=== PATIENT | male | born 1945 | race Caucasian/White ===

== ENCOUNTER 2022-05-13 16:24 | Inpatient (IN) ==
[2022-05-13] MEDS ORDERED: IOPAMIDOL 100 ML BOTTLE IV ONE (16:25)
[2022-05-13 19:19] LABS: POC Calcium, Ionized 1.04 (1.16-1.32); POC Creatinine 1.3 (0.6-1.2); POC Potassium 3.6 (3.3-5.1)
[2022-05-13] MEDS ORDERED: morphine 2 MG/ML VIAL IV ONE ×2 (19:30→21:14)
--- NOTE | 2022-05-13 19:41 | Emergency Department Note ---
Abdominal Pain HPI General Chief Complaint: Abdominal Pain Stated Complaint: gall bladder issues Time Seen by Provider: 05/13/22 16:47 Source: patient Mode of arrival: ambulatory Limitations: no limitations History of Present Illness HPI Narrative: Narrative: Patient presents ED with complaints of worsening abdominal pain x1 week. He reports that the pain is in the right upper quadrant and rates it 7/10. He sta mary he went to his PCPs office the other day and they set him up for an outpatient right upper quadrant ultrasound which revealed gallstones. Patient states that he went over to follow-up with Dr. Eduardo, general surgery, and was advised to come here to the ED for full work-up for possible surgery. Patient reports associated nausea, 2 bouts of diarrhea today and decreased appetite. He is not anything all day. He denies fever, chills, hematemesis, melena, medic easier abdominal trauma, cardiac chest pain, heart palpitation, shortness of breath. Patient denies any other alleviating or aggravating factors. Related Data Home Medications Medication Instructions Recorded Confirmed aspirin 81 mg tablet,delayed 81 mg PO QDAY 05/12/22 05/13/22 release Previous Rx's Medication Instructions Recorded Auto PAP #1 ea 10/01/19 nitroglycerin 0.4 mg sublingual 0.4 mg sublingual Q5-15MIN PRN 10/23/20 tablet chest pain #7 tabs sildenafil 100 mg tablet 100 mg PO QDAY PRN sexual activity 10/30/20 #10 tabs colchicine 0.6 mg tablet 0.6 mg PO QDAY #7 tabs 04/17/21 allopurinol 300 mg tablet 300 mg PO QDAY #90 tabs 12/16/21 atorvastatin 80 mg tablet 80 mg PO QDAY #90 tabs 12/16/21 ezetimibe 10 mg tablet (Zetia) 10 mg PO QDAY #90 tabs 12/16/21 hydrochlorothiazide 12.5 mg tablet 12.5 mg PO BID #180 tabs 12/16/21 lisinopril 40 mg tablet 40 mg PO QDAY #90 tabs 12/16/21 metoprolol succinate 100 mg 100 mg PO QDAY #90 tabs 12/16/21 tablet,extended release 24 hr pantoprazole 40 mg tablet,delayed 40 mg PO QDAY #90 tabs 12/16/21 release methylprednisolone 4 mg tablets in See Rx Instructions PO PER PKG DIR 03/18/22 a dose pack #21 tabs Allergies Allergy/AdvReac Type Severity Reaction Status Date / Time prochlorperazine Allergy Unknown Muscles Verified 05/13/22 14:15 [From Compazine] freeze up/paralysis Review of Systems ROS ROS Narrative: Narrative: All systems ED: reviewed and negative except as stated. 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) Osteoporosis (Chronic) Kidney stones (Chronic) Hypertension, essential (Chronic) Hyperlipidemia (Chronic) Closed hip fracture (Chronic) Coronary artery disease (Chronic 05/10/14) Colon polyps (Chronic 09/02/14) Aneurysm, abdominal aortic (Chronic 05/10/14) Acid reflux (Chronic) Medical History (Updated 05/13/22 @ 21:14 by Mark Boogie DO) Acid reflux Aneurysm, abdominal aortic (05/10/14) Closed hip fracture Colon polyps (09/02/14) TA HP Coronary artery disease (05/10/14) had quadruple bypass on 09/17/15 Hyperlipidemia Hypertension, essential Ischemic heart disease, chronic Kidney stones Medicare annual wellness visit, initial Osteoporosis Scheuermann's disease (12/06/13) Multilevel schmorl's node consistent with Scheuermann's disease - See MRI Stomach ulcer Unstable angina Vertebral fracture, closed 2013 Patient has 4 compressed, fractured vertebras Surgical History History of appendectomy History of colon resection 13 inches of colon removed History of colonoscopy (08/20/14) TA HP 2009-Dr. Umang Ortiz- [facility] History of shoulder surgery Right shoulder History of surgery Stent placement - 5 stents Family History Sister Malignant neoplasm of breast Family history of colon cancer Essential hypertension Malignant neoplasm of lung Brother Cerebrovascular accident (CVA) Essential hypertension Malignant neoplasm of prostate Mother Essential hypertension Father Acute myocardial infarction Social History Smoking Status: Former smoker Alcohol Intake Frequency: holiday/special occasion only Substance Use: does not use Exam Narrative Narrative: Narrative: General Limitations: no limitations General appearance: Present grimacing ENT ENT: Present normal oropharynx and mucous membranes moist Respiratory Respiratory: Present normal lung sounds bilaterally; Absent respiratory distress Cardiovascular Cardiovascular: Present regular rate and normal rhythm Adbominal Abdominal: Present soft, tenderness and normal bowel sounds Expanded Abdominal Abdominal Tenderness: Present RUQ Extremities Extremities: Present normal capillary refill Back Back: Absent CVA tenderness (R) or CVA tenderness (L) Neurological Neurological: Present oriented X3 and normal gait Psychiatric Psychiatric: Present normal affect and normal mood Skin Skin: Present warm (WNL) and intact Course Course Course Narrative: Patient was evaluated for abdominal pain. Patient had a ultrasound yesterday that was reviewed myself and consistent with cholecystitis but there was some concern about possible pancreatic mass. CT abdomen pelvis was obtained today with images reviewed myself and revealed that the pancreas was unremarkable but consistent with cholecystitis. Labs were obtained and were unremarkable to include normal amylase and lipase as well as liver panel. Patient was dehyd rated with elevated creatinine. He was given some IV fluids, IV morphine and Toradol for his pain discomfort. He is given some IV Zofran for his nausea. Case was discussed with Dr. Eduardo, surgery, who has agreed to admit the patient to the hospital for planned cholecystectomy. Patient white cell count was elevated she will start on IV Zosyn. Plan of care was discussed with patient who expressed verbal understanding and agreement. Preop EKG was obtained unremarkable, preop chest x-ray obtained and reviewed myself with no acute findings. Consultations Consultation #1: Case discussed with on-call surgeon, Dr. Eduardo, who has agreed to admit the patient for cholecystitis Time: 21:08 Vital Signs Vital signs: Vital Signs Temperature 99.3 F H 05/13/22 16:40 Pulse Rate 93 H 05/13/22 16:40 Respiratory Rate 05/13/22 16:40 Blood Pressure 136/79 05/13/22 16:40 Pulse Oximetry (%) 95 05/13/22 16:40 Oxygen Delivery Method Room Air 05/13/22 16:40 Temperature 99.3 F H 05/13/22 16:40 Pulse Rate 93 H 05/13/22 16:40 Respiratory Rate 05/13/22 16:40 Blood Pressure 136/79 05/13/22 16:40 Pulse Oximetry (%) 95 05/13/22 16:40 Oxygen Delivery Method Room Air 05/13/22 16:40 MDM MDM Narrative Medical decision making narrative: Narrative: Lab Data 05/13/22 19:23 Labs: Lab Results 05/13/22 05/13/22 05/13/22 Range/Units 19:14 19:18 19:18 WBC (4.5-11.0) K/mcL RBC (4.63-6.08) M/mcL Hgb (13.7-17.5) g/dL Hct (40.1-51.0) % POC Hct 53.0 (41-55) MCV (80.0-100.0) fL MCH (26.0-34.0) pg MCHC (31.0-36.0) g/dL RDW (11.5-14.5) % Plt Count (140-440) K/mcL MPV (8.8-12.5) fL Immature Gran % (Auto) (0.0-0.5) % Neut % (Auto) (38.0-78.0) % Lymph % (Auto) (15.5-49.0) % [place] % (Auto) (1.0-12.0) % Eos % (Auto) (0.0-7.0) % Baso % (Auto) (0.0-2.0) % Lymph # (Auto) (1.50-4.80) K/mcL [place] # (Auto) (0.10-0.90) K/mcL Eos # (Auto) (0.00-0.70) K/mcL Baso # (Auto) (0.00-0.30) K/mcL Immature Gran # (0.00-0.05) K/mcl Absolute Neutrophils (1.80-8.00) K/mcL POC Sodium 138 (133-145) POC Potassium 3.6 (3.3-5.1) POC Chloride 102 (96-108) POC Total CO2 26.0 (22-30) POC BUN 20 (6-20) POC Creatinine 1.3 H (0.6-1.2) POC Glucose 110 H (70-105) POC WB Ioniz Calcium 1.04 L (1.16-1.32) Total Bilirubin 1.4 H (0.1-1.0) mg/dL Direct Bilirubin 0.3 H (<0.3) mg/dL AST 18 (<40) U/L ALT 12 (<40) U/L Alkaline Phosphatase 94 (39-117) U/L Total Protein 7.5 (5.9-8.4) gm/dL Albumin 3.7 (3.2-5.2) gm/dL Globulin 3.8 H (2.2-3.7) gm/dL Amylase 62 (28-100) U/L Lipase 23 (7-60) U/L 05/13/22 Range/Units 19:23 WBC 14.1 H (4.5-11.0) K/mcL RBC 5.37 (4.63-6.08) M/mcL Hgb 17.1 (13.7-17.5) g/dL Hct 49.5 (40.1-51.0) % POC Hct (41-55) MCV 92.2 (80.0-100.0) fL MCH 31.8 (26.0-34.0) pg MCHC 34.5 (31.0-36.0) g/dL RDW 13.6 (11.5-14.5) % Plt Count 194 (140-440) K/mcL MPV 10.0 (8.8-12.5) fL Immature Gran % (Auto) 0.7 H (0.0-0.5) % Neut % (Auto) 80.4 H (38.0-78.0) % Lymph % (Auto) 9.6 L (15.5-49.0) % [place] % (Auto) 8.5 (1.0-12.0) % Eos % (Auto) 0.4 (0.0-7.0) % Baso % (Auto) 0.4 (0.0-2.0) % Lymph # (Auto) 1.35 L (1.50-4.80) K/mcL [place] # (Auto) 1.20 H (0.10-0.90) K/mcL Eos # (Auto) 0.05 (0.00-0.70) K/mcL Baso # (Auto) 0.05 (0.00-0.30) K/mcL Immature Gran # 0.10 H (0.00-0.05) K/mcl Absolute Neutrophils 11.33 H (1.80-8.00) K/mcL POC Sodium (133-145) POC Potassium (3.3-5.1) POC Chloride (96-108) POC Total CO2 (22-30) POC BUN (6-20) POC Creatinine (0.6-1.2) POC Glucose (70-105) POC WB Ioniz Calcium (1.16-1.32) Total Bilirubin (0.1-1.0) mg/dL Direct Bilirubin (<0.3) mg/dL AST (<40) U/L ALT (<40) U/L Alkaline Phosphatase (39-117) U/L Total Protein (5.9-8.4) gm/dL Albumin (3.2-5.2) gm/dL Globulin (2.2-3.7) gm/dL Amylase (28-100) U/L Lipase (7-60) U/L Radiology Data Radiology results reviewed: Yes I reviewed the patient's radiology results. Radiology results narrative: CT abdomen pelvis obtained with image reviewed myself consistent with cholecystitis Chest x-ray obtained with image reviewed myself, no acute findings EKG Data EKG #1: EKG attestation: Yes I reviewed and interpreted this EKG. EKG shows normal: sinus rhythm Rate: normal Bypro/QRS: LBBB P waves: LAE Heart block present: None ST segment elevation in: None ST segment depression in: None QTc: normal QRS morphology: Present normal Interpretation: no acute changes Discharge Plan Patient/Caregiver Discharge Instructions Pt seen by CHANNEL OPENER/PA only: No Clinical Impression: Acute cholecystitis, Cholelithiasis Patient Disposition: Xfer As Outpt/Obs ([facility]) Condition: Good Follow up with: Heber Marshall PA-C [Primary Care Provider] - Prescriptions: No Action nitroglycerin 0.4 mg tablet, sublingual 0.4 mg SUBLINGUAL Q5-15MIN PRN (Reason: chest pain) Qty: 7 2RF sildenafil 100 mg tablet 100 mg PO QDAY PRN (Reason: sexual activity) Qty: 10 1RF Rx Instructions: administer 30 minutes to 4 hours before activity colchicine 0.6 mg tablet 0.6 mg PO QDAY Qty: 7 0RF Rx Instructions: 1.2 milligrams at the first sign of an attack, followed by 0.6 milligrams one hour later. allopurinol 300 mg tablet 300 mg PO QDAY Qty: 90 3RF atorvastatin 80 mg tablet 80 mg PO QDAY Qty: 90 3RF lisinopril 40 mg tablet 40 mg PO QDAY Qty: 90 3RF metoprolol succinate 100 mg tablet extended release 24 hr 100 mg PO QDAY Qty: 90 3RF pantoprazole 40 mg tablet,delayed release (DR/EC) 40 mg PO QDAY Qty: 90 3RF hydrochlorothiazide 12.5 mg tablet 12.5 mg tablet 12.5 mg PO BID Qty: 180 3RF ezetimibe [Zetia] 10 mg tablet 10 mg PO QDAY Qty: 90 3RF aspirin 81 mg tablet,delayed release (DR/EC) 81 mg PO QDAY (DME) Auto PAP Qty: 1 0RF Rx Instructions: As directed methylprednisolone 4 mg tablets,dose pack See Rx Instructions PO PER PKG DIR Qty: 21 0RF Rx Instructions: PO PER PKG DIR
[2022-05-13] MEDS ORDERED: ONDANSETRON 4 MG/2 ML VIAL IV ONE (19:47)
[2022-05-13] MEDS ORDERED: 0.9 % SODIUM CHLORIDE 1,000 ML IV ONE (19:47)
[2022-05-13] MEDS ORDERED: KETOROLAC 30 MG/ML VIAL IV ONE (20:18)
[2022-05-13 20:38] LABS: Basophils # (Auto) 0.05 K/mcL (0.00-0.30); Basophils % (Auto) 0.4 % (0.0-2.0); Eosinophils # (Auto) 0.05 K/mcL (0.00-0.70); Eosinophils % (Auto) 0.4 % (0.0-7.0); Hematocrit 49.5 % (40.1-51.0); Hemoglobin 17.1 g/dL (13.7-17.5); Lymphocytes # (Auto) 1.35 K/mcL (1.50-4.80); Lymphocytes % (Auto) 9.6 % (15.5-49.0); Mean Cell Volume 92.2 fL (80.0-100.0); Mean Corpuscular HGB Conc 34.5 g/dL (31.0-36.0); Monocytes % (Auto) 8.5 % (1.0-12.0); Neutrophils % (Auto) 80.4 % (38.0-78.0); Platelet Count 194 K/mcL (140-440); RBC 5.37 M/mcL (4.63-6.08); Red Cell Distribution Width 13.6 % (11.5-14.5); WBC 14.1 K/mcL (4.5-11.0)
[2022-05-13 20:56] LABS: Amylase 62 U/L (28-100)
[2022-05-13 21:00] LABS: Albumin 3.7 gm/dL (3.2-5.2); Bilirubin,Direct 0.3 mg/dL (<0.3); Bilirubin,Total 1.4 mg/dL (0.1-1.0); Globulin 3.8 gm/dL (2.2-3.7)
[2022-05-13] MEDS ORDERED: PIPERACILLIN SODIUM/TAZOBACTAM 3.375 GM in DEXTROSE 5% IN WATER 50 ML IV ONE (21:14)
--- NOTE | 2022-05-13 21:41 | General Surgery Consult Note ---
HPI Date of Consult Consult Date: 05/13/22 Requesting physician: Mark Boogie Primary Care Provider: Heber Marshall PA-C Consult Narrative Patient Information: Note initiated : 05/13/22 at 9:31 pm Service Date, if different from initiated Date: [] Patient: Tra Riley 76 y/o M admitted on for gall bladder issues. Chief Complaint: [] Lorenzo is seen in consultation today after a 3-4 day history of worsening RUQ Pain that has become increasingly severe. He was initially seen in the clinic and then sent on to the ER for further work up. Both US and CT have demonstrated findings of gallbladder distension along with wall thickening and some surrounding edema. He has not been previously aware of stones. He has known CAD with past 4 vessel bypass and also had a prior Endo AAA repair. He is not on any oral anticoagulants. He had a prior Lap Colectomy for benign disease. He has not been jaundiced and stools have been normal. Chief complaint: RUQ Abdominal Pain Reason for consult: Cholecystitis cc:: CC: Constitutional Additional comments: no weight loss EENT Additional comments: no ENT changes Cardiovascular Additional comments: denies active chest pain but history of prior bypass Respiratory Additional comments: no SOB or cough Gastrointestinal Additional comments: see HPI Genitourinary Additional comments: no changes Musculoskeletal Additional comments: no recent issues Integumentary Additional comments: no changes Neurological Additional comments: no changes Hematologic/Lymphatic Additional comments: no adenopathy or bleeding issues PFSH PFSH All Active Problems Acute cholecystitis (Acute) Cholelithiasis (Acute) Medicare annual wellness visit, initial (Acute) EVA (obstructive sleep apnea) (Chronic) Ischemic heart disease, chronic (Chronic) Unstable angina (Chronic) Vertebral fracture, closed (Chronic) 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) Osteoporosis (Chronic) Kidney stones (Chronic) Hypertension, essential (Chronic) Hyperlipidemia (Chronic) Closed hip fracture (Chronic) Coronary artery disease (Chronic 05/10/14) Colon polyps (Chronic 09/02/14) Aneurysm, abdominal aortic (Chronic 05/10/14) Acid reflux (Chronic) Medical History Acid reflux Aneurysm, abdominal aortic (05/10/14) Closed hip fracture Colon polyps (09/02/14) TA HP Coronary artery disease (05/10/14) had quadruple bypass on 09/17/15 Hyperlipidemia Hypertension, essential Ischemic heart disease, chronic Kidney stones Medicare annual wellness visit, initial Osteoporosis Scheuermann's disease (12/06/13) Multilevel schmorl's node consistent with Scheuermann's disease - See MRI Stomach ulcer Unstable angina Vertebral fracture, closed 2013 Patient has 4 compressed, fractured vertebras Surgical History History of appendectomy History of colon resection 13 inches of colon removed History of colonoscopy (08/20/14) [facility] History of [facility] surgery Right shoulder History of surgery Stent placement - 5 stents Family History Sister Malignant neoplasm of breast Family history of colon cancer Essential hypertension Malignant neoplasm of lung Brother Cerebrovascular accident (CVA) Essential hypertension Malignant neoplasm of prostate Mother Essential hypertension Father Acute myocardial infarction Social History marital status: smoking status: Former smoker quit date: 04/11/04 alcohol intake frequency: holiday/special occasion only substance use type: does not use MEDS/ALLERGIES Home Medications and Allergies Home Medications Medication Instructions Recorded Confirmed Type Auto PAP #1 ea 10/01/19 05/13/22 Rx nitroglycerin 0.4 mg sublingual 0.4 mg sublingual Q5-15MIN PRN 10/23/20 05/13/22 Rx tablet chest pain #7 tabs sildenafil 100 mg tablet 100 mg PO QDAY PRN sexual activity 10/30/20 05/13/22 Rx #10 tabs colchicine 0.6 mg tablet 0.6 mg PO QDAY #7 tabs 04/17/21 05/13/22 Rx allopurinol 300 mg tablet 300 mg PO QDAY #90 tabs 12/16/21 05/13/22 Rx atorvastatin 80 mg tablet 80 mg PO QDAY #90 tabs 12/16/21 05/13/22 Rx ezetimibe 10 mg tablet (Zetia) 10 mg PO QDAY #90 tabs 12/16/21 05/13/22 Rx hydrochlorothiazide 12.5 mg tablet 12.5 mg PO BID #180 tabs 12/16/21 05/13/22 Rx lisinopril 40 mg tablet 40 mg PO QDAY #90 tabs 12/16/21 05/13/22 Rx metoprolol succinate 100 mg 100 mg PO QDAY #90 tabs 12/16/21 05/13/22 Rx tablet,extended release 24 hr pantoprazole 40 mg tablet,delayed 40 mg PO QDAY #90 tabs 12/16/21 05/13/22 Rx release methylprednisolone 4 mg tablets in See Rx Instructions PO PER PKG DIR 03/18/22 05/13/22 Rx a dose pack #21 tabs aspirin 81 mg tablet,delayed 81 mg PO QDAY 05/12/22 05/13/22 History release Allergies Allergy/AdvReac Type Severity Reaction Status Date / Time prochlorperazine Allergy Unknown Muscles Verified 05/13/22 14:15 [From Compazine] freeze up/paralysis Physical Examination Vital Signs Vital signs: Temp Pulse Resp BP Pulse Ox O2 Del Method 99.3 F H 88 22 136/74 92 Room Air 05/13/22 16:40 05/13/22 21:11 05/13/22 16:40 05/13/22 21:11 05/13/22 21:11 05/13/22 16:40 General physical appearance General physical exam: well developed, well nourished and no distress Eyes Eye exam: normal ocular movement ENT ENT exam: other (normal appearance ) Head Head exam IM: Present atraumatic, normal inspection and normocephalic Neck Neck exam: trachea midline and no lymphadenopathy Cardiovascular Cardiovascular exam IM: Present normal rate and rhythm Respiratory Respiratory exam: normal respiratory effort Abdomen Abdomen: Present soft (TTP RUQ with positive Morrissey's, remainder of exam soft and non distended, non tender ) Integumentary Integumentary: Present other (normal appearing intact skin ) Neurologic Neurologic: Present other (seems grossly intact ) Psychiatric Psychiatric: Present oriented to time, oriented to person and oriented to place Results Labs 05/13/22 19:23 Labs: Abnormal lab results 05/13/22 05/13/22 05/13/22 Range/Units 19:14 19:18 19:23 WBC 14.1 H (4.5-11.0) K/mcL Immature Gran % (Auto) 0.7 H (0.0-0.5) % Neut % (Auto) 80.4 H (38.0-78.0) % Lymph % (Auto) 9.6 L (15.5-49.0) % Lymph # (Auto) 1.35 L (1.50-4.80) K/mcL [place] # (Auto) 1.20 H (0.10-0.90) K/mcL Immature Gran # 0.10 H (0.00-0.05) K/mcl Absolute Neutrophils 11.33 H (1.80-8.00) K/mcL POC Creatinine 1.3 H (0.6-1.2) POC Glucose 110 H (70-105) POC WB Ioniz Calcium 1.04 L (1.16-1.32) Total Bilirubin 1.4 H (0.1-1.0) mg/dL Direct Bilirubin 0.3 H (<0.3) mg/dL Globulin 3.8 H (2.2-3.7) gm/dL Diabetes panel 05/13/22 Range/Units 19:18 AST 18 (<40) U/L ALT 12 (<40) U/L Alkaline Phosphatase 94 (39-117) U/L Total Protein 7.5 (5.9-8.4) gm/dL Albumin 3.7 (3.2-5.2) gm/dL Calcium panel 05/13/22 Range/Units 19:18 Albumin 3.7 (3.2-5.2) gm/dL Adrenal panel 05/13/22 Range/Units 19:18 Total Bilirubin 1.4 H (0.1-1.0) mg/dL AST 18 (<40) U/L ALT 12 (<40) U/L Alkaline Phosphatase 94 (39-117) U/L Total Protein 7.5 (5.9-8.4) gm/dL Albumin 3.7 (3.2-5.2) gm/dL All other labs normal. A/P Assessment and plan (1) Acute cholecystitis: Assessment and plan: Cholecystitis Admit to hospital with IV ABs and fluids Pain medication overnight and add on to OR schedule for AM as he doesn't currently appear toxic Risks, benefits, potential complications and alternative treatment options for planned Lap Cholecystectomy have all been reviewed and discussed at length including bleeding, infection, conversion to open, injury to surrounding structures, drain placement, partial or subtotal fenestrating cholecystectomy and others as well - he is in agreement with the plan and wishes to proceed Status: Acute Time Spent With Patient Time: Total time spent is greater than 50% in coordination of care (as documented) at patient's floor/unit and/or counseling patient:
[2022-05-13] MEDS ORDERED: oxyCODONE HCL 5 MG TABLET PO ONE (22:22)
[2022-05-13] MEDS: HYDROmorphone 0.5 MG/0.5 ML SYRINGE IV PRN (22:31)
[2022-05-13] MEDS: PIPERACILLIN SODIUM/TAZOBACTAM 3.375 GM in DEXTROSE 5% IN WATER 50 ML IV SCH (22:32)
[2022-05-14] MEDS ORDERED: ONDANSETRON 4 MG/2 ML VIAL IV PRN ×2 (00:45→11:03)
[2022-05-14] MEDS: DEXTROSE 5%-LR 1,000 ML IV SCH ×4 (01:26→23:30)
[2022-05-14] MEDS: PIPERACILLIN SODIUM/TAZOBACTAM 3.375 GM in DEXTROSE 5% IN WATER 50 ML IV SCH ×5 (04:36→23:49)
--- NOTE | 2022-05-14 06:40 | Cat Scan Report ---
INDICATION: pain COMPARISON: Previous CT scan dated 12/04/2017, 03/07/2013 TECHNIQUE: Axial images were obtained through the abdomen and pelvis. Sagittally and coronally reformatted images. 80 mL Isovue 370 injected intravenously. Oral contrast material was not administered FINDINGS: Lung bases:No focal pulmonary parenchymal infiltrate or mass. No pleural fluid. History of previous coronary artery bypass procedure Liver:Negative. No focal intrahepatic mass. No focal abnormality. Liver contour is smooth. No evidence for cirrhosis Gallbladder, bilary:Gall bladder is abnormal. There is mild gallbladder distention. There are dependent small stones. There is mild gallbladder wall thickening and pericholecystic inflammatory change. Appearance is consistent with cholelithiasis and cholecystitis. No dilated bile ducts Spleen:No splenomegaly. Normal enhancement of splenic and portal veins. Pancreas:No pancreatic mass. No peripancreatic abnormality. Previous ultrasound was suspicious for a possible peripancreatic abnormality. There is a 19 mm oval-shaped abnormality just anterior to the inferior vena cava and deep to the pancreatic head. Etiology is not certain but this was present on CT scan dated 03/07/2013 aneurysm considered benign. Adrenal glands:10 mm right adrenal nodule. This is stable and benign Kidneys,ureters,bladder:Bilateral renal cysts. No solid mass. There is no hydronephrosis. No obstructing or nonobstructing calculi No hydroureter. No ureteral calculus. No bladder stone. No detectable bladder mass. Gastrointestinal:Previous partial colectomy. No detectable colonic mass . Negative small bowel. No mechanical small bowel obstruction. No bowel wall thickening. No focal abnormality. Negative stomach and duodenum. No focal abnormality. Appendix: The appendix is removed Vascular:There is an abdominal aortic aneurysm. There is an aortic stent graft. No evidence for endoleak. There is prominent mural thrombus. There is been no interval enlargement. Lymphatic:No retroperitoneal or mesenteric adenopathy Mesentery, peritoneum: No free intraperitoneal fluid. No mesenteric or retroperitoneal mass. No intra-abdominal abscess. Reproductive:Markedly enlarged prostate with elevated bladder floor Musculoskeletal:Mild compression deformity of the L1 vertebral body. Severe biconcave compression deformity of the L3 vertebral body. Moderate biconcave compression of the L5 vertebral body. These findings are stable since 12/04/2017. No abdominal wall or inguinal hernia IMPRESSION: 1. Cholelithiasis and findings consistent with cholecystitis 2. 19 mm density between the inferior vena cava and pancreatic head. This demonstrates long-term stability and is benign 3. Benign right adrenal nodule 4. Previous partial colectomy 5. Aortic stent graft for treatment of abdominal aortic aneurysm 6. Markedly enlarged prostate 7. Compression deformities in the lumbar spine are stable The exam was performed using radiation dose optimization techniques including, but not limited to, automated exposure control, adjustment of the mA and/or kV according to patient size and use of iterative reconstruction technique. Interpreted and Authenticated by: Shemar Brito 05/14/22
--- NOTE | 2022-05-14 06:40 | XRay Report ---
INDICATION: tachy TECHNIQUE: AP portable upright chest x-ray COMPARISON: Previous examination dated 09/20/2015 FINDINGS: Lungs:Lungs are negative. No focal pulmonary parenchymal infiltrate or mass Heart, vascular:No significant cardiomegaly. Pulmonary vascularity is normal. No pulmonary edema or pulmonary congestion Mediastinum, tracy:Previous coronary artery bypass procedure Pleura:No pleural fluid. No pleural-based mass or calcification Skeletal:Previous median sternotomy. Cancellous screw fusing the right clavicle to the coracoid process IMPRESSION: 1. Previous median sternotomy and coronary artery bypass 2. No acute abnormality Interpreted and Authenticated by: Shemar Brito 05/14/22
[2022-05-14 08:25] LABS: Hemoglobin 15.3 g/dL (13.7-17.5); Mean Cell Volume 93.7 fL (80.0-100.0); Mean Corpuscular HGB Conc 33.3 g/dL (31.0-36.0); Mean Platelet Volume 9.9 fL (8.8-12.5); Platelet Count 177 K/mcL (140-440); RBC 4.91 M/mcL (4.63-6.08); Red Cell Distribution Width 13.5 % (11.5-14.5); WBC 9.2 K/mcL (4.5-11.0)
[2022-05-14] MEDS: 0.9 % SODIUM CHLORIDE 10 ML SYRINGE IV SCH ×3 (08:28→22:22)
[2022-05-14] MEDS ORDERED: SCOPOLAMINE 1 PATCH PATCH TOPICAL PRN (08:30)
[2022-05-14] MEDS ORDERED: IPRATROPIUM/ALBUTEROL 3 ML AMPUL.NEB NEB PRN ×2 (08:30→11:03)
[2022-05-14 08:37] LABS: Blood Urea Nitrogen 18 mg/dL (8-23); Calcium 8.2 mg/dL (8.6-10.4); Carbon Dioxide 23 mmol/L (22-30); Chloride 102 mmol/L (96-108); Glomerular Filtration Rate 53; Glucose 131 mg/dL (70-105)
[2022-05-14] MEDS ORDERED: ceFAZolin 2 GM in DEXTROSE 5% IN WATER 50 ML IV SCH (08:45)
[2022-05-14] MEDS ORDERED: BUPIVACAINE W/EPI 0.25% 50 ML VIAL IJ ONE (09:00)
[2022-05-14] MEDS ORDERED: GLYCOPYRROLATE 0.2 MG/ML VIAL IV ONE (09:15)
[2022-05-14] MEDS ORDERED: DEXAMETHASONE 10 MG/ML VIAL ONE (09:15)
[2022-05-14] MEDS ORDERED: KETAMINE 50 MG/ML Syringe (ANEST) IV ONE (09:15)
[2022-05-14] MEDS ORDERED: LIDOCAINE HCL/PF 100 MG/5 ML SYRINGE IV ONE (09:15)
[2022-05-14] MEDS ORDERED: PHENYLephrine 1 MG/10 ML SYRINGE (ANEST) ONE (09:15)
[2022-05-14] MEDS ORDERED: fentaNYL 100 MCG/2 ML VIAL IV ONE (09:15)
[2022-05-14] MEDS ORDERED: ONDANSETRON 4 MG/2 ML VIAL ONE (09:15)
[2022-05-14] MEDS ORDERED: PROPOFOL 200 MG/20 ML VIAL IV ONE (09:15)
[2022-05-14] MEDS ORDERED: TRANEXAMIC ACID 1,000 MG/10 ML VIAL ONE (09:15)
[2022-05-14] MEDS ORDERED: ROCURONIUM 10 MG/ML ML IV ONE (09:15)
[2022-05-14] MEDS ORDERED: SUGAMMADEX SODIUM 200 MG/2 ML VIAL IV ONE (09:15)
[2022-05-14] MEDS ORDERED: HYDROmorphone 1 MG/ML SYRINGE ONE (09:15)
[2022-05-14] MEDS ORDERED: SUCCINYLCHOLINE 20 MG/ML ML IV ONE (09:15)
[2022-05-14] MEDS ORDERED: MAGNESIUM SULFATE 2 GM/50 ML BAG IV ONE (09:15)
[2022-05-14] MEDS ORDERED: MEPERIDINE 50 MG/ML VIAL IM PRN (11:03)
[2022-05-14] MEDS ORDERED: LABETALOL 5 MG/ML ML IV PRN (11:03)
[2022-05-14] MEDS ORDERED: ACETAMINOPHEN 1,000 MG/100 ML BAG IV ONE (11:03)
[2022-05-14] MEDS ORDERED: LACTATED RINGERS 250 ML IV PRN (11:03)
[2022-05-14] MEDS ORDERED: METHOCARBAMOL 1,000 MG/10 ML VIAL IV PRN (11:03)
[2022-05-14] MEDS ORDERED: HYDROmorphone 0.5 MG/0.5 ML SYRINGE IV PRN (11:03)
[2022-05-14] MEDS ORDERED: MEPERIDINE 25 MG/ML VIAL IV PRN (11:03)
[2022-05-14] MEDS ORDERED: NALOXONE HCL 0.4 MG/ML VIAL IV PRN (11:03)
[2022-05-14] MEDS ORDERED: METOPROLOL TARTRATE 5 MG/5 ML VIAL IV PRN (11:03)
[2022-05-14] MEDS ORDERED: PROMETHAZINE 25 MG/ML VIAL IM PRN (11:03)
[2022-05-14] MEDS ORDERED: fentaNYL 100 MCG/2 ML VIAL IV PRN (11:03)
[2022-05-14] MEDS ORDERED: LACTATED RINGERS 1,000 ML IV SCH (11:15)
--- NOTE | 2022-05-14 12:57 | Brief Operative Note ---
Brief Operative Note Date of procedure: 05/14/22 Pre-op diagnosis: Cholecystitis Post-op diagnosis: same Procedure: Laparoscopic Cholecystectomy Grafts/Implants: Yes (19 FR JPD ) Anesthesia: GETA Findings: Empyema of the Gallbladder with Marked Inflammation throughout the area including the Hepatocystic [place] Complications: none Surgeon: Maverick Eduardo Estimated blood loss (cc): 15 Specimens Removed/Pathology: other (gallbladder ) Condition: stable Disposition: PACU
[2022-05-14] MEDS: oxyCODONE HCL 5 MG TABLET PO PRN (17:00)
[2022-05-14] MEDS: HYDROmorphone 0.5 MG/0.5 ML SYRINGE IV PRN ×2 (17:57→20:18)
--- NOTE | 2022-05-14 18:33 | General Surgery Progress Note ---
SUBJECTIVE Subjective Patient information: Note initiated : 05/14/22 at 830 am Service Date, if different from initiated Date: [] Patient: Tra Riley 76 y/o M admitted on 05/14/22 for gall bladder issues. Chief Complaint: [] Feels much improved after last night and wishes to proceed to the OR for Lap Cholecystectomy this am as discussed. Continues to have pain but much improved. Constitutional Vitals: Vital Signs Temp Pulse Resp BP Pulse Ox O2 Del Method O2 Flow Rate 97.9 F 73 18 153/84 89 L Nasal Cannula 2 05/14/22 16:00 05/14/22 17:24 05/14/22 16:00 05/14/22 17:23 05/14/22 17:23 05/14/22 17:23 05/14/22 17:23 Period Temp Pulse Resp BP Sys/Patel Pulse Ox O2 Del Method O2 Flow Rate Last 24 Hr 97.2 F-99 F 64-100 7-18 95-165/61-109 88-98 Nasal Cannula-Room Air 2-6 Intake and Output 05/14/22 05/14/22 05/14/22 03:59 11:59 19:59 Intake Total 8573 100 6729 Output Total 150 150 Balance 1050 0 4330 Weight 180 lb 1.6 oz Intake & Output: Intake & Output 05/14/22 05/14/22 05/14/22 03:59 11:59 19:59 Intake Total 9955 266 5870 Output Total 150 150 Balance 1050 0 4330 Weight 180 lb 1.6 oz Intake: IV 8446 626 8409 Sodium Chloride 0.9% 1,000 ml @ 1000 Wide Open IV B[facility] ONE Rx#: [id number] Dextrose 5%-Lactated Ringers 1, 1000 000 ml @ 125 mls/hr IV .Q8H [facility] Rx#:[id number] Zosyn 3.375 gm In Dextrose 5% 50 50 100 in Water 50 ml @ 100 mls/hr IV Q6H [facility] Rx#:[id number] Ancef 2 gm In Dextrose 5% in 50 Water 50 ml @ 100 mls/hr IV PREOP [facility] Rx#:[id number] Oral 50 480 IV - Manual Only 2800 Output: Void Amount 150 150 Other: Meal Lunch Percent of Meal Consumed 75% Feeding Ability Independent Urine Appearance Clear Clear Urine Color Dark Yellow Dark Yellow Exam: Non toxic, pleasantly conversant Respiratory Respiratory exam: Present normal respiratory exam Additional comments: normal effort without distress Cardiovascular Cardiovascular exam: Present RRR GI/Abdominal Additional comments: soft and non distended, TTP RUQ with continued localized peritoneal findings Extremities Exam Additional comments: well perfused A/P Assessment and plan (1) Acute cholecystitis: Status: Acute Plan Cholecystitis Clinically improved with plans to proceed to the OR this AM Risks, benefits, potential complications and alternative treatment options are all reviewed and discussed at length and he wishes to proceed Time Spent With Patient Time: Total time spent is greater than 50% in coordination of care (as documented) at patient's floor/unit and/or counseling patient:
[2022-05-14] MEDS: ATORVASTATIN 40 MG TABLET PO SCH (20:18)
[2022-05-15] MEDS: HYDROmorphone 0.5 MG/0.5 ML SYRINGE IV PRN ×6 (01:20→14:29)
[2022-05-15] MEDS: 0.9 % SODIUM CHLORIDE 10 ML SYRINGE IV SCH ×3 (04:43→21:31)
[2022-05-15] MEDS: PIPERACILLIN SODIUM/TAZOBACTAM 3.375 GM in DEXTROSE 5% IN WATER 50 ML IV SCH ×4 (05:27→23:48)
[2022-05-15 06:27] LABS: Hematocrit 40.8 % (40.1-51.0); Hemoglobin 13.9 g/dL (13.7-17.5); Mean Cell Volume 92.7 fL (80.0-100.0); Mean Corpuscular HGB Conc 34.1 g/dL (31.0-36.0); Platelet Count 173 K/mcL (140-440); Red Cell Distribution Width 13.2 % (11.5-14.5); WBC 13.8 K/mcL (4.5-11.0)
[2022-05-15 07:07] LABS: ALT/SGPT 58 U/L (<40); AST/SGOT 49 U/L (<40); Albumin/Globulin Ratio 1.1 (1.0-2.3); Alkaline Phosphatase 119 U/L (39-117); Bilirubin,Total 0.6 mg/dL (0.1-1.0); Blood Urea Nitrogen 14 mg/dL (8-23); Calcium 8.2 mg/dL (8.6-10.4); Carbon Dioxide 26 mmol/L (22-30); Chloride 102 mmol/L (96-108); Globulin 2.8 gm/dL (2.2-3.7); Glomerular Filtration Rate 65; Glucose 152 mg/dL (70-105)
[2022-05-15] MEDS: oxyCODONE HCL 5 MG TABLET PO PRN ×2 (08:20→20:16)
[2022-05-15] MEDS: COLCHICINE 0.6 MG CAPSULE PO SCH (08:20)
[2022-05-15] MEDS: ALLOPURINOL 300 MG TABLET PO SCH (08:20)
[2022-05-15] MEDS ORDERED: DEXTROSE 5%-LR 1,000 ML IV SCH (08:30)
[2022-05-15] MEDS ORDERED: METOPROLOL SUCCINATE 50 MG TAB.XL.24H PO SCH (09:00)
[2022-05-15] MEDS ORDERED: LISINOPRIL 20 MG TABLET PO SCH (09:00)
[2022-05-15] MEDS: HYDROCHLOROTHIAZIDE 12.5 MG CAPSULE PO SCH ×2 (09:54→20:16)
[2022-05-15] MEDS ORDERED: PNEUMOCOCCAL 23-VAL P-SAC VAC 0.5 ML SYRINGE IM ONE (10:00)
--- NOTE | 2022-05-15 10:54 | General Surgery Progress Note ---
SUBJECTIVE Subjective Patient information: Note initiated : 05/15/22 at 10:50 am Service Date, if different from initiated Date: [] Patient: Tra Riley 76 y/o M admitted on 05/14/22 for gall bladder issues. Chief Complaint: [] Feels ok this am but pain in RUQ remains an issue. No flatus yet and feels bloated. Has walked some in the room only Constitutional Vitals: Vital Signs Temp Pulse Resp BP Pulse Ox O2 Del Method O2 Flow Rate 97.2 F 61 22 124/69 98 Room Air 2 05/15/22 08:00 05/15/22 08:00 05/15/22 08:00 05/15/22 08:00 05/15/22 08:00 05/15/22 08:00 05/14/22 17:23 Period Temp Pulse Resp BP Sys/Patel Pulse Ox O2 Del Method O2 Flow Rate Last 24 Hr 97.2 F-98.4 F 60-100 7-22 101-158/45-109 88-98 Nasal Cannula- Room Air 2-6 Intake and Output 05/14/22 05/15/22 05/15/22 19:59 03:59 11:59 Intake Total 4480 1290 2150 Output Total 150 115 505 Balance 4330 1175 1645 Weight 181 lb 6.4 oz Intake & Output: Intake & Output 05/14/22 05/15/22 05/15/22 19:59 03:59 11:59 Intake Total 4480 1290 2150 Output Total 150 115 505 Balance 4330 1175 1645 Weight 181 lb 6.4 oz Intake: IV 1200 1050 1050 Dextrose 5%-Lactated Ringers 1, 1000 1000 1000 000 ml @ 100 mls/hr IV .Q10H [facility] Rx#:[id number] Zosyn 3.375 gm In Dextrose 5% 100 50 50 in Water 50 ml @ 100 mls/hr IV Q6H [facility] Rx#:[id number] Oral 867 070 5608 IV - Manual Only 2800 Output: Drainage 15 Right Upper Abdomen ELIE Drain 15 Drainage 15 Right Upper Abdomen ELIE Drain 15 Void Amount 150 100 490 Other: Meal Lunch Breakfast Percent of Meal Consumed 75% 75% Feeding Ability Independent Independent Urine Appearance Clear Clear Clear Urine Color Dark Yellow Yellow Dark Yellow Exam: Looks non toxic, pleasantly conversant Respiratory Respiratory exam: Present normal respiratory exam Additional comments: normal effort without distress Cardiovascular Cardiovascular exam: Present normal rate and rhythm and RRR GI/Abdominal Additional comments: soft and non tender but does have some mild distension, drain is scant, trocar sites look dry Extremities Exam Additional comments: well perfused A/P Assessment and plan (1) Acute cholecystitis: Assessment and plan: POD #1 Lap Cholecystectomy for Acute Cholecystitis with Empyema of the Gallbladder Probable Ileus Clear sips only, add suppositories and increase activity Add IV Tylenol for pain mgmt and continue IV ABs for now Status: Acute Time Spent With Patient Time: Total time spent is greater than 50% in coordination of care (as documented) at patient's floor/unit and/or counseling patient:
[2022-05-15] MEDS: DEXTROSE 5%-LR 1,000 ML IV SCH ×2 (11:46→20:54)
[2022-05-15] MEDS: ACETAMINOPHEN 650 MG/65 ML BAG IV SCH ×2 (12:06→20:14)
[2022-05-15] MEDS: BISACODYL 10 MG SUPP.RECT PR SCH ×2 (12:11→21:01)
[2022-05-15] MEDS: ATORVASTATIN 40 MG TABLET PO SCH (20:15)
[2022-05-16] MEDS: oxyCODONE HCL 5 MG TABLET PO PRN (00:18)
[2022-05-16] MEDS: ACETAMINOPHEN 650 MG/65 ML BAG IV SCH ×3 (04:32→20:46)
[2022-05-16] MEDS: 0.9 % SODIUM CHLORIDE 10 ML SYRINGE IV SCH ×3 (05:30→20:48)
[2022-05-16] MEDS: PIPERACILLIN SODIUM/TAZOBACTAM 3.375 GM in DEXTROSE 5% IN WATER 50 ML IV SCH ×3 (05:36→17:06)
[2022-05-16 06:46] LABS: Hematocrit 40.6 % (40.1-51.0); Hemoglobin 13.6 g/dL (13.7-17.5); Mean Cell Volume 95.3 fL (80.0-100.0); Mean Corpuscular HGB Conc 33.5 g/dL (31.0-36.0); Mean Platelet Volume 10.2 fL (8.8-12.5); Platelet Count 183 K/mcL (140-440); RBC 4.26 M/mcL (4.63-6.08); Red Cell Distribution Width 13.5 % (11.5-14.5)
[2022-05-16 07:12] LABS: ALT/SGPT 48 U/L (<40); AST/SGOT 34 U/L (<40); Albumin 2.9 gm/dL (3.2-5.2); Alkaline Phosphatase 97 U/L (39-117); Bilirubin,Total 0.6 mg/dL (0.1-1.0); Blood Urea Nitrogen 14 mg/dL (8-23); Calcium 8.4 mg/dL (8.6-10.4); Carbon Dioxide 29 mmol/L (22-30); Chloride 101 mmol/L (96-108); Globulin 2.8 gm/dL (2.2-3.7); Glomerular Filtration Rate 53; Glucose 109 mg/dL (70-105)
[2022-05-16] MEDS: DEXTROSE 5%-LR 1,000 ML IV SCH ×2 (07:45→17:06)
[2022-05-16] MEDS: PANTOPRAZOLE 40 MG TABLET PO SCH (07:45)
[2022-05-16] MEDS: HYDROCHLOROTHIAZIDE 12.5 MG CAPSULE PO SCH ×2 (08:26→20:47)
[2022-05-16] MEDS: COLCHICINE 0.6 MG CAPSULE PO SCH (08:26)
[2022-05-16] MEDS: BISACODYL 10 MG SUPP.RECT PR SCH ×2 (08:26→20:47)
[2022-05-16] MEDS: ALLOPURINOL 300 MG TABLET PO SCH (08:26)
[2022-05-16] MEDS: LISINOPRIL 20 MG TABLET PO SCH (08:26)
[2022-05-16] MEDS: METOPROLOL SUCCINATE 50 MG TAB.XL.24H PO SCH (08:26)
--- NOTE | 2022-05-16 09:31 | General Surgery Progress Note ---
SUBJECTIVE Subjective Patient information: Note initiated : 05/16/22 at 9:27 am Service Date, if different from initiated Date: [] Patient: Tra Riley 76 y/o M admitted on 05/15/22 for gall bladder issues. Chief Complaint: [] POD #2 Lap Meghna with washout and drain placement Looks and feels much improved this am. Passing gas now, less bloating, pain much better Constitutional Vitals: Vital Signs Temp Pulse Resp BP Pulse Ox O2 Del Method O2 Flow Rate 98.2 F 60 16 142/76 95 Room Air 2 05/16/22 07:45 05/16/22 07:45 05/16/22 07:45 05/16/22 07:45 05/16/22 07:45 05/16/22 07:45 05/14/22 17:23 Period Temp Pulse Resp BP Sys/Patel Pulse Ox O2 Del Method O2 Flow Rate Last 24 Hr 97.5 F-98.4 F 51-60 16-18 102-142/57-76 91-95 Room Air-Room Air Intake and Output 05/15/22 05/16/22 05/16/22 19:59 03:59 11:59 Intake Total 1645 1478 1115 Output Total 073 109 4499 Balance 1442 723 -135 Weight 182 lb 8 oz Intake & Output: Intake & Output 05/15/22 05/16/22 05/16/22 19:59 03:59 11:59 Intake Total 1645 1478 1115 Output Total 547 449 4616 Balance 1442 723 -135 Weight 182 lb 8 oz Intake: IV 1165 1028 1115 Dextrose 5%-Lactated Ringers 1, 2942 411 2113 000 ml @ 100 mls/hr IV .Q10H [facility] Rx#:[id number] Zosyn 3.375 gm In Dextrose 5% 100 50 50 in Water 50 ml @ 100 mls/hr IV Q6H [facility] Rx#:[id number] Oral 480 450 Output: Drainage 3 5 Right Upper Abdomen ELIE Drain 3 5 Void Amount 456 368 3377 Other: Meal Dinner Breakfast Percent of Meal Consumed Refused 100% Urine Appearance Clear Clear Clear Urine Color Dark Yellow Yellow Yellow Exam: Looks well, nontoxic, NAD Respiratory Additional comments: normal effort without distress Cardiovascular Cardiovascular exam: Present normal rate and rhythm and RRR GI/Abdominal Additional comments: soft and non tender, mild distension, drain serosang, trocar dressings intact Extremities Exam Additional comments: appears well perfused A/P Assessment and plan (1) Acute cholecystitis: Assessment and plan: POD #2 Lap Meghna with washout and drain placement Feeling much better overall with returning bowel function Resume diet and continue to increase activity Continue IV ABs for now, no discharge planned for today Status: Acute Time Spent With Patient Time: Total time spent is greater than 50% in coordination of care (as documented) at patient's floor/unit and/or counseling patient:
[2022-05-16] MEDS: ATORVASTATIN 40 MG TABLET PO SCH (20:47)
[2022-05-16] MEDS ORDERED: DEXTROSE 5%-LR 1,000 ML IV SCH (20:55)
[2022-05-17] MEDS: PIPERACILLIN SODIUM/TAZOBACTAM 3.375 GM in DEXTROSE 5% IN WATER 50 ML IV SCH ×3 (00:01→14:36)
[2022-05-17] MEDS: ACETAMINOPHEN 650 MG/65 ML BAG IV SCH ×2 (03:57→14:35)
[2022-05-17] MEDS: 0.9 % SODIUM CHLORIDE 10 ML SYRINGE IV SCH ×2 (06:04→14:36)
[2022-05-17] MEDS: COLCHICINE 0.6 MG CAPSULE PO SCH (08:19)
[2022-05-17] MEDS: PANTOPRAZOLE 40 MG TABLET PO SCH (08:19)
[2022-05-17] MEDS: ALLOPURINOL 300 MG TABLET PO SCH (08:19)
[2022-05-17] MEDS: HYDROCHLOROTHIAZIDE 12.5 MG CAPSULE PO SCH (08:20)
[2022-05-17] MEDS: METOPROLOL SUCCINATE 50 MG TAB.XL.24H PO SCH (08:20)
[2022-05-17] MEDS: LISINOPRIL 20 MG TABLET PO SCH (08:20)
[2022-05-17] MEDS: BISACODYL 10 MG SUPP.RECT PR SCH (08:21)
--- NOTE | 2022-05-17 08:47 | Operative Note ---
DATE OF OPERATION: 05/14/2022 DATE OF PROCEDURE: 05/14/2022 PREOPERATIVE DIAGNOSIS: Acute cholecystitis. 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 PROCEDURE: Laparoscopic cholecystectomy with washout and drainage. SURGEON: Maverick Eduardo M.D. ANESTHESIA: General. PREOPERATIVE MEDICATIONS: 1. Ancef 2 g IV. 2. Zosyn 3.375 g IV. INDICATIONS: The patient is a 76-year-old male who presented to the Emergency Room late in the evening of 05/13/2022 with at least a 4-5 day history of severely intense and worsening right upper quadrant pain and discomfort. Prior ultrasound demonstrated findings consistent with acute cholecystitis. Additional laboratory work as well as a CT scan were obtained, both of which corroborated this. He had an elevated white count, mildly elevated LFTs and a CT scan demonstrating no evidence of any biliary ductal dilatation, but a significantly inflamed and edematous gallbladder. He was brought into the hospital and placed on IV antibiotics and preparations were made for surgery the following day. Risks, benefits, potential complications, and alternative treatment options were all discussed at length. These included, but are not limited to bleeding, infection, cosmetic dissatisfaction, abnormal scarring, the potential need for conversion to an open procedure, the probable need for drain placement, potential for injury to surrounding structures such as the liver, bile duct bowel, pancreas and others, the possible need for a partial or subtotal fenestrating cholecystectomy and then finally the option to consider having percutaneous drainage alone at this time, followed by surgery at a later date via percutaneous cholecystostomy. All these options were discussed, and he wished to undergo the procedure as advised. DESCRIPTION OF PROCEDURE: The patient was taken to the OR and placed supine on the OR table, placed under general anesthesia and intubated. Bilateral SCDs were applied. All pressure sensitive areas were carefully padded. His arms were tucked at his sides. The abdomen was widely prepped and draped in a sterile fashion. Procedure began with access to the peritoneal cavity utilizing a 0-degree, 5-mm scope through a Visiport in the right upper abdomen. Once peritoneal access was obtained utilizing a 30-degree scope, pneumoperitoneum was obtained with high-flow CO2 insufflation and the area of access was examined to make sure there was no evidence of injury; none was seen. We then changed out the 0-degree scope for a 30-degree scope and placed our remaining trocars. This included an additional 5 mm right upper abdominal working trocar, a 5 mm supraumbilical trocar and a 12 mm midepigastric somewhat subxiphoid trocar. The scope was resited to the supraumbilical port site. The patient was then placed in a reverse Trendelenburg position, airplaned towards the left side. The gallbladder, initially, was not visible, but a large area of omental phlegmon appeared to be adherent to it and could be seen in the right upper abdomen in the typical location just below the liver. This was gradually peeled down and away to reveal a very distended appearing, inflamed and edematous gallbladder. There was no evidence of necrosis. The gallbladder was far too firm to be grasped; however, a needle decompression was indicated and accomplished and it was apparent at this point that the gallbladder was full of pus and it was empyemic in nature. Decompression allowed us to grasp the fundus of the gallbladder and retract it towards the right shoulder over the liver. His liver was somewhat stiff and exposure was somewhat difficult, but gradually we were able to obtain good exposure of the entire length of the gallbladder down to the level of the hepatocystic triangle. The gallbladder was very friable and tore easily up at its fundus with retraction, but did have sufficient integrity to allow us to maintain retraction of the gallbladder up over the liver. Initial landmarks of the hepatocystic triangle were fully obscured. We were able to start our dissection roughly at the level of the lower body of the gallbladder just above the expected location of the infundibulum and to dissect away the inflamed adherent and very thickened peritoneum to identify the infundibulum in its expected location. We were then able to begin a posterior and anterior dissection of the hepatocystic triangle and gradually identified what appeared to be the cystic duct coursing down into the manasa and after dissecting further anteriorly and posteriorly we were gradually able to clear out the entire hepatocystic triangle and identified both the cystic duct and the cystic artery as the only two structures coursing up into the gallbladder. We then continued our dissection medially and performed a very extensive cystic plate dissection to further confirm appropriate critical view of safety with the bare liver superimposed behind this, we were able to confirm that there were only two structures entering and no other structures were visible coursing up into the gallbladder and thus we had a very adequate critical view of safety. Photodocumentation was obtained and then I transected the cystic artery between clips high up on its entry point into the gallbladder. This further allowed this area to be cleared out and delineated and then at this point, we went ahead and transected the gallbladder at the junction point of the neck and the cystic duct with a single firing of the 35 mm endovascular KELBY stapler, again without difficulty. We were then able to grasp the staple line and at this point, only a very small portion of the dissection of the distal fundus of the gallbladder remained, which we were able to easily do and removed it in its entirety without difficulty. It was placed in EndoCatch and removed through the right upper abdominal 12 mm trocar site under direct vision and examined on the back table and sent to pathology for permanent inspection. There was some oozing and bleeding from the gallbladder fossa, given the inflammatory nature of the dissection and the gallbladder itself, and so some Surgicel was brought in as a topical hemostatic, after assuring that there was only mild oozing and no significant active hemorrhage. I then elected to bring in a drain and a 19-Occitan round Severiano drain was brought in through the most lateral 5 mm right upper abdominal working trocar site and positioned in place just beneath the liver in the area of the dissection and secured in place with several 3-0 silk sutures. We then irrigated out copiously given the fact that there had been significant amounts of purulent spillage from the upper fundus of the gallbladder during the course of retraction and dissection despite the fact it had been decompressed at the onset of the case. After adequate irrigation with roughly 3 liters of saline up in this area and after assuring that there was no evidence of any further active hemorrhage or biliary leak, and none was seen, we then went ahead and then made preparations for final closure. The 12 mm trocar site was removed and then the fascia was closed with interrupted 0 Vicryl stitch utilizing the inlet fascial closure device under direct vision without difficulty. We then, under direct vision, relieved the pneumoperitoneum and removed our final two trocars without difficulty. We then closed the incision sites with interrupted 3-0 Vicryl sutures in the deep and subdermal layers and interrupted 4-0 Monocryl suture was utilized where appropriate to further close the incision. Steri-Strips and sterile dressings were applied and the patient was awakened, extubated, and transferred to PACU in satisfactory condition. There were no apparent complications or issues. Sponge, needle and instrument counts were correct. Findings were discussed above. BW:jose Job ID: [id number] Doc ID: [id number] Maverick Eduardo M.D.
[2022-05-17 08:51] LABS: Blood Urea Nitrogen 12 mg/dL (8-23); Calcium 8.7 mg/dL (8.6-10.4); Carbon Dioxide 25 mmol/L (22-30); Chloride 104 mmol/L (96-108); Glomerular Filtration Rate 59; Glucose 93 mg/dL (70-105)
--- NOTE | 2022-05-17 12:14 | General Surgery Progress Note ---
SUBJECTIVE Subjective Patient information: Note initiated : 05/17/22 at 12:09 pm Service Date, if different from initiated Date: [] Patient: Tra Riley 76 y/o M admitted on 05/15/22 for gall bladder issues. Chief Complaint: [] Doing well, feels much improved and ready for discharge - passing large amounts of gas and stool Constitutional Vitals: Vital Signs Temp Pulse Resp BP Pulse Ox O2 Del Method O2 Flow Rate 97.3 F 50 L 20 146/80 96 Room Air 2 05/17/22 08:00 05/17/22 08:00 05/17/22 08:00 05/17/22 08:00 05/17/22 08:00 05/17/22 08:00 05/14/22 17:23 Period Temp Pulse Resp BP Sys/Patel Pulse Ox O2 Del Method O2 Flow Rate Last 24 Hr 97.3 F-98.8 F 50-70 16-24 133-171/70-85 93-96 Room Air-Room Air Intake and Output 05/17/22 05/17/22 05/17/22 03:59 11:59 19:59 Intake Total 690 115 Output Total 1075 Balance -385 115 Weight 193 lb 9.6 oz Intake & Output: Intake & Output 05/17/22 05/17/22 05/17/22 03:59 11:59 19:59 Intake Total 690 115 Output Total 1075 Balance -385 115 Weight 193 lb 9.6 oz Intake: IV 115 115 Zosyn 3.375 gm In Dextrose 5% 50 50 in Water 50 ml @ 100 mls/hr IV Q6H [facility] Rx#:[id number] Oral 575 Output: Void Amount 1075 Other: Urine Appearance Clear Urine Color Yellow Stool Size Large Stool Color Brown Stool Consistency Soft # Bowel Movements 1 Exam: looks well, no distress Respiratory Respiratory exam: Present normal respiratory exam Additional comments: normal effort without distress Cardiovascular Cardiovascular exam: Present RRR GI/Abdominal Additional comments: soft and non tender, trocar dressings in place, drain serosang, non biliious Extremities Exam Additional comments: well perfused A/P Assessment and plan (1) Acute cholecystitis: Assessment and plan: POD #3 Lap Cholecystectomy Doing Well Home Today Drain Removal Prior to Discharge Status: Acute Time Spent With Patient Time: Total time spent is greater than 50% in coordination of care (as documented) at patient's floor/unit and/or counseling patient:
--- NOTE | 2022-05-17 13:24 | EKG ---
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
--- NOTE | 2022-05-25 07:33 | Discharge Summary ---
DATE OF ADMISSION: 05/13/2022 DATE OF DISCHARGE: 05/17/2022 DATE OF ADMISSION: 05/13/2022 ADMITTING DIAGNOSIS: Acute cholecystitis. DISCHARGE DIAGNOSIS: Acute cholecystitis. ADMITTING PHYSICIAN: Maverick Eduardo MD INDICATIONS FOR ADMISSION/HOSPITAL COURSE: The patient is a 76-year-old male who presented to the Emergency Room on 05/13/2022 with findings consistent with acute cholecystitis. He was admitted and started on IV antibiotics, and we proceeded to the operating room the following day. The details of this can be found in a separate report. His surgery went well. A drain was placed and he recovered for the next several days in the hospital on IV antibiotics, which consisted primarily of obtaining improved pain control and waiting for bowel function to kick in, which it did quickly thereafter. By 05/17/2022, he was felt ready for discharge. The drain was removed and he was discharged home. DISPOSITION: Home with clinic follow up. PROCEDURE: Laparoscopic cholecystectomy 05/14/2022. BW:jose Job ID: [id number] Doc ID: [id number] Maverick Eduardo M.D.
== END 2022-05-17 14:10 | disposition home or self-care (01) | DRG 419 ==
LOC: ED 16:24 → MEDSUR 16:24
PROVIDERS: ADMIT Surgery Surgical Critical Care; ATTEND Surgery Surgical Critical Care